=== PATIENT | female | born 1985 | race Caucasian/White ===

== ENCOUNTER 2023-09-09 18:47 | Emergency (ER) | payer SELFPAY ==
--- OUTSIDE RECORDS SUMMARY | 2023-09-09 18:51 | XMS REPORT | Continuity of Care Document ---
Author Name Unknown Address [address] [facility] [place] [address] [facility] Address [address] [facility] [address] [place] [address] Care Team Providers Care Network Relations Consultant Name Role Phone CHARLOTTE LUDWIG Primary Care Physician Unav ailable POLA BATISTA Attending Clinician Unavailab Pola Llanos Attending Clinician ALMAS Attending Clinician Unavailable GUU_SHENG_YAW Attending Clinician Unavailable ALMAS Admitting Clinician Unavailable GUTarun_SHENG_YAW Admitting Clinician Unavailable Payers Payer Name Policy Type Policy Number Effective Date Expirati on Date Source Problems Condition Name Condition Details Condition Category Status Onset Date Resolution Date Last Treatment Date Treating Clinician Comments Source Pain of round ligament affecting , antepartum Pain of round ligament affecting , antepartum Disease Active 04-20 00:00: 00 [facility] Multiparit y Multiparit y Disease Active 03-15 00:00: 00 [facility] High-risk High-risk Disease Active 03-15 00:00: 00 [facility] Glucose tolerance test abnormal Glucose tolerance test abnormal Disease Active 03-03 00:00: 00 Overview: Formattin g of this note might be different from the original. 137 need 3 hour [facility] Antepartum anemia in second trimester Antepartum anemia in second trimester Disease Active 03-03 00:00: 00 Overview: Formattin g of this note might be different from the original. 10.9/33.8 [facility] Asthma Asthma Disease Active 09-29 00:00: 00 Overview: Formattin g of this note might be different from the original. 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 [facility] Allergies, Adverse Reactions, Alerts Allergy Name Allergy Type Status Severity Reaction(s) Onset Date Inactive Date Treating Clinician Comments Source NO KNOWN ALLERGIE S Drug Class Active [facility] Social History Social Habit Start Date Stop Date Quantity Comments [facility] 2018-07-21 00:00:00 2018-07-21 00:00:00 0 /d [facility] History of Social function 2014-10-07 00:00:00 2014-10-07 00:00:00 [facility] Tobacco use and exposure 2014-09-29 00:00:00 2014-09-29 00:00:00 Smokeless tobacco non-user [facility] Sex Assigned At 1985 00:00:00 1985 00:00:00 [facility] Smoking Status Start Date Stop Date Source Never smoked tobacco [facility] Medications Ordered Medication Name Filled Medication Name Start Date Stop Date Current Medication? Ordering Clinician Indication Dosage Frequency Signature (SIG) Comments Components Source ipratropium -albuteroL (DUONEB) 0.5 mg-3 mg(2.5 mg base)/3 mL nebulizer solution 6 mL 2022-02 18:15: 00 02-10 17:28 :00 No 6mL 6 mL, Inhalation , ONCE, 1 dose, On 02/10/23 at 1215, Routine [facility] predniSONE (DELTASONE) tablet 50 mg 2022-02 17:30: 00 02-10 17:26 :00 No 50mg 50 mg, Oral, ONCE, 1 dose, On 02/10/23 at 1130, PEDRO [facility] albuterol 90 mcg/actuati on inhaler 2022-02 00:00: 00 Yes [id number] 2{puff} Inhale 2 Puffs every 4 (four) hours as needed for Wheezing or Shortness of Breath. [facility] predniSONE 20 mg tablet 2022-02 00:00: 00 02-16 05:59 :00 No [id number] 40mg Take 2 tablets by mouth in the morning for 5 days. [facility] Iron, Cbn & Gluc-FA-B12 -C-DSS (FERRALET 90 DUAL-IRON DELIVERY) -12-50 mg-mg-mcg-m g per tablet 03-29 00:00: 00 Yes [id number] 1{tbl} Take 1 Tab by mouth daily. [facility] vit #33-iron-FA -dha (SELECT-OB + DHA) 29 mg iron-1 mg -250 mg combo pack 03-26 00:00: 00 Yes [id number] 1{packe t} Take 1 Packet by mouth daily. [facility] acetaminoph en (TYLENOL) 325 mg tablet 10-28 12:33: 14 Yes Take by mouth every 6 (six) hours as needed. [facility] Immunizations Ordered Immunization Name Filled Immunization Name Date Status Comments Source TD, NOS Unknown Completed [facility] TDAP Unknown Completed [facility] Vital Signs Vital Name Observation Time Observation Value Comments S ource Systolic blood pressure 2023-02-10 18:00:00 123 mm[Hg] [facility] Diastolic blood pressure 2023-02-10 18:00:00 77 mm[Hg] [facility] hospital Heart rate 2023-02-10 18:00:00 85 /min [facility] Respiratory rate 2023-02-10 18:00:00 18 /min [facility] Oxygen saturation in Arterial blood by Pulse oximetry 2023-02-10 18:00:00 97 /min [facility] acute hospital Body temperature 2023-02-10 17:14:00 37 Ebony [facility] Body height 2023-02-10 17:14:00 167.6 cm [facility] Body weight 2023-02-10 17:14:00 63.504 kg [facility] BMI 2023-02-10 17:14:00 22.60 kg/m2 [facility] Procedures Procedure Date / Time Performed Performing Clinicia n Source CONSENT/REFUSAL FOR DIAGNOSIS AND TREATMENT 2023-02-10 17:10:48 Doctor Unassigned, [place] [facility] Encounters Start Date/Time End Date/Time Encounter Type Admission Type Attending Clinicians Care Facility Care Department Encounter ID Source 2023-04-27 15:24:03 2023-04-27 15:24:03 Outpatient SFA SFA [id number] Juan Diego Dennis 2023-02-10 11:13:00 2023-02-10 12:14:00 Emergency X POLA BATISTA [facility] ERT [id number] [facility] 2023-02-10 11:13:00 2023-02-10 12:14:00 Emergency Yahaira, Pola Natalie [facility] [id number] [facility] 2020-09-22 02:48:00 2020-09-22 02:48:00 Outpatient [place] [id number] [facility] 2020-08-26 10:29:00 2020-08-26 10:29:00 Outpatient [place] [id number] [facility] 2020-08-25 03:11:00 2020-08-25 03:11:00 Outpatient GUU_SHENG_[place] [id number] [facility] 2020-08-24 04:26:00 2020-08-24 04:26:00 Outpatient GUU_SHENG[place] [id number] [facility] 2020-07-26 02:09:00 2020-07-26 02:09:00 Outpatient GUU[place]SHENG[place] [id number] [facility] 2020-07-24 01:15:00 2020-07-24 01:15:00 Outpatient GUU_SHENG[place] [id number] [facility] 2020-07-20 11:07:00 2020-07-20 11:07:00 Outpatient GUU_SHENG[place] [id number] [facility] 2020-06-23 02:54:00 2020-06-23 02:54:00 Outpatient GUU[place]SHENG[place] [id number] [facility] 2020-06-21 04:15:00 2020-06-21 04:15:00 Outpatient GUU_SHENG[place] [id number] [facility] 2019-12-23 11:28:00 2019-12-23 11:28:00 Outpatient GUU_SHENG[place] [id number] [facility] 2019-12-01 04:44:00 2019-12-01 04:44:00 Outpatient GUU_SHENG[facility] [id number] [facility] Notes Date/Time Note Provider Source 2023-02-10 12:13:39 [id number]:13:39F ormatting of this note might be different from the original.Pt given printed and verbal discharge instructions regarding asthma, encouraged hydration.2 Prescriptions provided.Discussed ibuprofen and to take with food to avoid GI distress.Pt verbalized understanding of instructions, pt awake alert oriented, resp reg unlabored, skin w/d, color appropriate for race, moves all ext well,pt encouraged to follow up with pcp.Advised to seek medical attention for new/prolonged/worsening of symptoms,Symptoms improved.No adverse reaction to meds given in ER noted upon discharge.Awake, alert oriented, resp reg unlabored, skin w/d, pt leaving amb with steady gait, in no apparent distress. [id number] department [id number]:14:23[facility] [id number] for patient [id number] d C-CDA narrative [id number] M Herrera RN[id number]| [id number] Cynthia Del Valle RN [facility] 2023-02-10 11:13:26 [id number]:13:26F ormatting of this note might be different from the original.Patient states: "I was pulling up some carpet this morning around 9 am. It was a mistake"Pt reports sob, history of asthma, out of her inhaler. [id number] department Triage [id number]:13:53[facility] Triage [id number] for patient [id number] department NoteLNNARRATIVEFormatted C-CDA narrative [id number] M Cruz RNUT[id number] [id number]:[id number]| [id number] Shea Sutton RN [facility]
[2023-09-09] MEDS ORDERED: IBUPROFEN 400 MG TAB ONE (20:11)
--- NOTE | 2023-09-09 21:15 | RAD REPORT ---
EXAM DESCRIPTION: RAD - Tib Fib Right - 09/09/2023 9:04 pm CLINICAL HISTORY: PAIN COMPARISON: No comparisons FINDINGS/IMPRESSION: No acute fracture. No malalignment. No significant focal degenerative changes. Prominence of the medial cortex at the mid tibial diaphysis could be from a remote healed fracture. I t is of no acute clinical significance
--- NOTE | 2023-09-09 21:19 | RAD REPORT ---
EXAM DESCRIPTION: US - Extremity Venous Uni Ltd - 09/09/2023 9:04 pm CLINICAL HISTORY: Pain COMPARISON: None. TECHNIQUE: Real-time sonographic evaluation of the right lower extremity deep venous system was perf ormed. FINDINGS: Normal compressibility, flow augmentation, phasic flow and spontaneous flow is identified in the right lower extremity deep venous system. No intraluminal filling defects seen. IMPRESSION: No DVT in the right lower extremity.
--- NOTE | 2023-09-09 21:37 | EDPHYS ---
Physician Documentation [facility] Name: Ara Mckeon Age: 37 yrs Sex: Female : 1985 Arrival Date: 09/09/2023 Time: 18:47 Bed 8 Private MD: ED Physician Baldev Sales HPI: 09/08 20:00 This 37 yrs old Female presents to ER via Ambulatory with complaints of Leg Pain. cp 20:00 The patient presents with pain. The complaints affect the right knee and right lower cp leg. 20:00 Context: resulted from fall from ladder approximately 10 feet high late last month cp about August 14. 20:00 Associated signs and symptoms: Pertinent positives: calf tenderness, Pertinent cp negatives numbness, warmth. 20:00 Treatment prior to arrival includes: no previous treatment. cp Historical: - Allergies: 19:00 No Known Allergies; tl4 - Home Meds: 19:00 None [Active]; tl4 - PMHx: 19:00 None; tl4 - PSHx: 19:00 None; tl4 - Immunization history:: Adult Immunizations unknown. - Infectious Disease History:: Denies. - Social history:: Smoking status: Patient denies any tobacco usage or history of. ROS: 20:05 MS/extremity: Positive for pain, tenderness, of the right lower leg, cp 20:05 Constitutional: Negative for body aches, chills, fever, poor PO intake, cp 20:05 Eyes: Negative for injury, pain, redness, and discharge, cp 20:05 Neck: Negative for pain with movement, pain at rest, 20:05 Respiratory: Negative for cough, shortness of breath, wheezing, 20:05 Abdomen/GI: Negative for abdominal pain, 20:05 Back: Negative for pain at rest, pain with movement, 20:05 Skin: Negative for cellulitis, rash, 20:05 Neuro: Negative for altered mental status, numbness, weakness, 20:05 All other systems are negative, Exam: 20:10 Constitutional: The patient appears in no acute distress, alert, awake, well developed, cp well nourished, 20:10 Head/Face: Normocephalic, atraumatic. cp 20:10 Chest/axilla: Inspection: normal, 20:10 Cardiovascular: Rate: normal, Pulses: Pulses are 2+ in right dorsalis pedis artery. 20:10 Respiratory: the patient does not display signs of respiratory distress, Respirations: normal, no use of accessory muscles, no retractions, labored breathing, is not present, Breath sounds: are clear throughout, 20:10 Abdomen/GI: Exam negative for discomfort, distension, guarding, Inspection: abdomen appears normal, 20:10 Back: pain, is absent, ROM is normal, 20:10 Musculoskeletal/extremity: Extremities: grossly normal except: noted in the right leg: no joint tenderness noted of right knee and right ankle, full AROM with no pain, tenderness along lateral side of proximal lower leg and calf, no gross swelling noted, overlying skin w/o rash and/or cellulitis, 20:10 Neuro: Orientation: to person, place \T\ time. Mentation: is normal, Vital Signs: 18:57 BP 149 / 87; Pulse 69; Resp 16; Temp 97.1; Pulse Ox 99% on R/A; Weight 65.77 kg; Height tl4 5 ft. 6 in. ; Pain 5/10; 20:57 BP 139 / 88; Pulse 69; Pulse Ox 100% on R/A; tm6 20:57 Pain 4/10; tm6 18:57 Body Mass Index 23.40 (65.77 kg, 167.64 cm) tl4 18:57 Pain Scale: Adult tl4 20:57 Pain Scale: Adult tm6 MDM: 19:03 Patient medically screened. cp 21:35 Data reviewed: vital signs, nurses notes, radiologic studies, plain films, ultrasound. cp 09/08 19:56 Order name: US Extremity Venous Unilateral Ltd; Complete Time: 21:25 cp 09/08 21:25 Interpretation: Report reviewed. cp 09/08 19:56 Order name: XRAY Tib Fib RIGHT; Complete Time: 21:25 cp 09/08 21:26 Interpretation: Report reviewed. cp 09/08 21:31 Order name: Wilmer Wrap cp Administered Medications: 20:16 Drug: Ibuprofen PO 800 mg PO once Route: PO; tm6 Disposition: 22:22 Co-signature as Attending Physician, Baldev Sales MD I reviewed the patient's care rt provided by the Advanced Practice Provider and agree with the diagnosis and treatment plan. Disposition Summary: 09/09/23 21:37 Discharge Ordered Notes: Location: Home cp Problem: new cp Symptoms: have improved cp Condition: Stable cp Diagnosis - Pain in right lower leg cp Followup: cp - With: Private Physician - When: 1 week - Reason: pain continues Discharge Instructions: - Discharge Summary Sheet cp - Musculoskeletal Pain cp - RICE Therapy for Routine Care of Injuries cp - How to Use Cold Therapy cp - Heat Therapy cp Forms: - Medication Reconciliation Form cp - Antibiotic Education cp - Prescription Opioid Use cp - Patient Portal Instructions cp - Leadership Thank You Letter cp Prescriptions: - Diclofenac Sodium 75 mg Oral tablet, delayed release (enteric coated) - take 1 tablet ORAL route 2 times per day; 20 tablet; Refills: 0, Product cp Selection Permitted Signatures: Dispatcher [employer] EDMS Raymond Simms PA PA cp Baldev Sales MD MD rt Juli Vargas RN RN tm6 Nelson Mendoza RN RN tl4
--- NOTE | 2023-09-09 21:37 | ER ---
Nurse's Notes [facility] Name: Ara Mckeon Age: 37 yrs Sex: Female : 1985 Arrival Date: 09/09/2023 Time: 18:47 Bed 8 Private MD: Diagnosis: Pain in right lower leg Presentation: 09/08 18:57 Chief complaint: Patient states: Pt states she fell 10 ft off a ladder approx 1 month tl4 ago. Pt c/o progressively worsening pain in right leg. Pt states her right leg goes numb, feels heavy, and gets hot. Symptoms are moving up her leg toward her hip. Coronavirus screen: At this time, the client does not indicate any symptoms associated with coronavirus-19. Ebola Screen: No symptoms or risks identified at this time. Initial Sepsis Screen: Does the patient meet any 2 criteria? No. Patient's initial sepsis screen is negative. Does the patient have a suspected source of infection? No. Patient's initial sepsis screen is negative. Risk Assessment: Do you want to hurt yourself or someone else? Patient reports no desire to harm self or others. Onset of symptoms was August 12, 2023. 18:57 Method Of Arrival: Ambulatory tl4 18:57 Acuity: LEIGHANN 3 tl4 Triage Assessment: 19:00 General: Appears uncomfortable, Behavior is calm, cooperative. Pain: Complains of pain tl4 in right leg. EENT: No signs and/or symptoms were reported regarding the EENT system. Neuro: Level of Consciousness is awake, alert, obeys commands, Oriented to person, place, time, situation. Cardiovascular: Capillary refill < 3 seconds Patient's skin is warm and dry. Respiratory: Airway is patent Respiratory effort is even, unlabored, Respiratory pattern is regular, symmetrical. GI: No signs and/or symptoms were reported involving the gastrointestinal system. : No signs and/or symptoms were reported regarding the genitourinary system. Derm: No signs and/or symptoms reported regarding the dermatologic system. Musculoskeletal: Reports pain in right leg. Historical: - Allergies: 19:00 No Known Allergies; tl4 - Home Meds: 19:00 None [Active]; tl4 - PMHx: 19:00 None; tl4 - PSHx: 19:00 None; tl4 - Immunization history:: Adult Immunizations unknown. - Infectious Disease History:: Denies. - Social history:: Smoking status: Patient denies any tobacco usage or history of. Screenin:17 [facility] ED Fall Risk Assessment (Adult) History of falling in the last 3 months, jm12 including since admission Yes- single mechanical fall (1 pt) Confusion or Disorientation No (0 pts) Intoxicated or Sedated No (0 pts) Impaired Gait Yes (1 pt) Mobility Assist Device Used No (0 pt) Altered Elimination No (0 pt) Score/Fall Risk Level 0 - 2 = Low Risk. Assessment: 19:17 General: Appears in no apparent distress. Pain: Complains of pain in right leg. Neuro: jm12 No deficits noted. Cardiovascular: No deficits noted. Respiratory: No deficits noted. GI: No deficits noted. : No deficits noted. EENT: No deficits noted. Derm: No deficits noted. Musculoskeletal: Reports pain in right leg. 20:58 Reassessment: Patient appears in no apparent distress at this time. Patient and/or tm6 family updated on plan of care and expected duration. Pain level reassessed. Patient is alert, oriented x 3, equal unlabored respirations, skin warm/dry/pink. Vital Signs: 18:57 BP 149 / 87; Pulse 69; Resp 16; Temp 97.1; Pulse Ox 99% on R/A; Weight 65.77 kg; Height tl4 5 ft. 6 in. ; Pain 5/10; 20:57 BP 139 / 88; Pulse 69; Pulse Ox 100% on R/A; tm6 20:57 Pain 4/10; tm6 18:57 Body Mass Index 23.40 (65.77 kg, 167.64 cm) tl4 18:57 Pain Scale: Adult tl4 20:57 Pain Scale: Adult tm6 ED Course: 18:50 Patient arrived in ED. im 19:00 Triage completed. tl4 19:01 Arm band placed on right wrist. tl4 19:02 Raymond Simms PA is PHCP. cp 19:02 Baldev Sales MD is Attending Physician. cp 19:17 Patient has correct armband on for positive identification. Provided Education on: Pt jm12 given call light and instructed on how to use it pt verbalized understanding. 20:06 Juli Vargas, RN is Primary Nurse. tm6 21:06 XRAY Tib Fib RIGHT In Process Unspecified. EDMS 21:07 US Extremity Venous Unilateral Ltd In Process Unspecified. EDMS Administered Medications: 20:16 Drug: Ibuprofen PO 800 mg PO once Route: PO; tm6 Medication: 19:17 VIS not applicable for this client. jm12 Outcome: 21:37 Discharge ordered by . [facility] 21:47 Discharged to home ambulatory, [facility] 21:47 Condition: stable 21:47 Discharge instructions given to patient, Instructed on discharge instructions, follow up and referral plans. medication usage, 21:48 Patient left the ED. jm12 Signatures: Dispatcher [employer] EDMS Raymond Simms PA PA cp Mendoza, Itzel im Masterson, Tawney RN RN tm6 Nelson Mendoza RN RN tl4 Rylee Narayanan, RN RN jm12
[2023-09-13 14:52] VITALS: BP 139/88; TEMP 97.1; O2SAT 100
== END 2023-09-09 21:48 | disposition home or self-care (01) ==
LOC: ER 18:47
DX: M79.661 Pain in right lower leg (principal)
CPT/HCPCS: 93971; 99283